=== PATIENT | female | born 1955 ===

== ENCOUNTER 2017-08-05 09:36 | Emergency (ER) | payer OTHER ==
[2017-08-05 09:46] VITALS: BP 145/79; PULSE 78; RESP 20; TEMP 98.6; O2SAT 100
--- NOTE | 2017-08-05 10:47 | RAD ---
RIGHT KNEE SERIES Three views the right knee missed the differential trauma. No prior comparison available. No acute fracture, dislocation or suspicious lytic or blastic change identified. Trace suprapatellar bursa effusion is questioned and joint space narrowing at the medial femorotibial as well as the patellofemoral joints is compatible with osteoarthritis including cortical sclerosis in the same distribution. Diffuse osteopenia suggests osteoporosis. IMPRESSION: No acute fracture, subluxation or dislocation. Limited suprasellar bursa effusion. Degenerative changes as discussed above.
--- NOTE | 2017-08-05 10:48 | RAD ---
RIGHT HIP WITH PELVIS AP and frog-leg lateral views of the right hip have been submitted with single frontal view of the pelvis is history of trauma. No prior comparison available. There is no acute fracture dislocation involving the right hip joint with the pelvic ring appearing intact as well. No distraction of the sacroiliac joints is appreciate bilaterally. degenerative changes seen symmetrically the bilateral sacroiliac and hip joints with hip joints more affected than the sacroiliac joints. The pubic symphysis appears intact. No destructive bony lesion is seen throughout the examination. IMPRESSION: No acute fracture or dislocation right hip joint with degenerative changes seen at the bilateral sacroiliac and hip joints. Pelvic ring is nevertheless intact without distraction.
--- NOTE | 2017-08-05 11:25 | ED PDOC ---
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 She denied any loss of consciousness, back, hip, head or neck injury. She also reported no use of blood thinners. Patient stated that she was able to ambulate and has had a previous knee injury in the past which was evaluated by an orthopedist in the [place] without intervention. PMD: Marcus Connell MD Past Medical History Reviewed: Historical Data, Nursing Documentation, Vital Signs Vital Signs: Last Vital Signs Temp 98.6 F 08/05/17 09:59 Pulse 78 08/05/17 09:59 Resp 20 08/05/17 09:59 BP 145/79 08/05/17 09:59 Pulse Ox 100 08/05/17 11:45 - Medical History PMH: No Chronic Diseases - Surgical History Surgical History: No Surg Hx - Family History Family History: States: Unknown Family Hx - Social History Current smoker - smoking cessation education provided: No Ex-Smoker (has not smoked in the last 12 months): No Alcohol: None Drugs: Denies - Home Medications Home Medications: Ambulatory Orders Medication Instructions Recorded Ibuprofen [Motrin Tab] 600 mg PO Q6 PRN #15 tab 08/05/17 - Allergies Allergies/Adverse Reactions: Allergies Allergy/AdvReac Type Severity Reaction Status Date / Time No Known Allergies Allergy Verified 08/05/17 09:58 Review of Systems ROS Statement: Except As Marked, All Systems Reviewed And Found Negative Musculoskeletal: Positive for: Leg Pain (right knee). Negative for: Neck Pain ( or injury), Other (hip pain) Neurological: Negative for: Headache (or head injury), Other (LOC) Physical Exam - Reviewed Nursing Documentation Reviewed: Yes Vital Signs Reviewed: Yes - Physical Exam Appears: Positive for: Non-toxic, No Acute Distress Head Exam: Positive for: ATRAUMATIC, NORMAL INSPECTION, NORMOCEPHALIC Cardiovascular/Chest: Positive for: Regular Rate, Rhythm Respiratory: Positive for: Normal Breath Sounds. Negative for: Respiratory Distress Back: Positive for: Vertebral Tenderness (right-sided) Extremity: Positive for: Normal ROM (bilateral lower extremities), Tenderness ( right knee mildly; right-sided hip). Negative for: Deformity (lower), Swelling (lower) Neurologic/Psych: Positive for: Alert, Oriented, Gait (steady). Negative for: Motor/Sensory Deficits - ECG O2 Sat by Pulse Oximetry: 100 (RA) Pulse Ox Interpretation: Normal Medical Decision Making Medical Decision Making: Initial Impression: Right knee pain S/P fall injury Initial Plan: * Xray knee (right) * Tylenol 650mg PO * Xray hip (right) Time: 1046 --Xray hip/pelvis (right) Findings: There is no acute fracture dislocation involving the right hip joint with the pelvic ring appearing intact as well. No distraction of the sacroiliac joints is appreciate bilaterally. degenerative changes seen symmetrically the bilateral sacroiliac and hip joints with hip joints more affected than the sacroiliac joints. The pubic symphysis appears intact. No destructive bony lesion is seen throughout the examination. IMPRESSION: No acute fracture or dislocation right hip joint with degenerative changes seen at the bilateral sacroiliac and hip joints. Pelvic ring is nevertheless intact without distraction. --Xray knee (right) Findings: No acute fracture, dislocation or suspicious lytic or blastic change identified. Trace suprapatellar bursa effusion is questioned and joint space narrowing at the medial femorotibial as well as the patellofemoral joints is compatible with osteoarthritis including cortical sclerosis in the same distribution. Diffuse osteopenia suggests osteoporosis. IMPRESSION: No acute fracture, subluxation or dislocation. Limited suprasellar bursa effusion. Degenerative changes as discussed above. Time: 1100 --KELLY wrap ordered for right knee support. --Advised orthopedic follow-up in 1 or 2 days, in the case MR imaging is required. Scribe Attestation: Documented by Swetha Mcadams, acting as a scribe for Jovanny Hope III, DO. Provider Scribe Attestation: All medical record entries made by the Scribe were at my direction and personally dictated by me. I have reviewed the chart and agree that the record accurately reflects my personal performance of the history, physical exam, medical decision making, and the department course for this patient. I have also personally directed, reviewed, and agree with the discharge instructions and disposition. Disposition - Clinical Impression Clinical Impression: Knee pain - Patient ED Disposition Is Patient to be Admitted: No Counseled Patient/Family Regarding: Studies Performed, Diagnosis, Need For Followup, Rx Given - Disposition Referrals: Carlos Dean III, MD [Staff Provider] - Disposition Time: 11:05 Condition: STABLE Additional Instructions: Wear KELLY wrap to knee, use medication for pain as directed and see orthopedist for further testing and treatment. Prescriptions: Ibuprofen [Motrin Tab] 600 mg PO Q6 PRN #15 tab PRN Reason: Pain, Moderate (4-7) Instructions: Knee Pain (DC) Forms: [email or web address] (Irish) Print Language: EMIRATI
== END 2017-08-05 11:52 | disposition home or self-care (01) ==
LOC: H.ER 09:36
DX: M25.561 Pain in right knee (principal); W01.0XXA Fall on same level from slipping, tripping and stumbling without subsequent striking against object, initial encounter; Y92.89 Other specified places as the place of occurrence of the external cause